=== PATIENT | female | born 1995 | race Hispanic/Latino ===

== ENCOUNTER 2018-06-17 06:09 | Emergency (ER) | payer OTHER ==
[2018-06-17 06:47] LABS: Bacteria,Urine 1+ /HPF (Negative); Bilirubin,Urine NEG (Negative); Blood,Urine NEG (Negative); Color,Urine Yellow (Yellow); Hyaline Casts,Urine 1 /LPF; Mucus,Urine 1+ /HPF
[2018-06-17 06:55] LABS: Benzodiazepines Screen,Urine PRESUMPTIVE NEGATIVE; Cocaine Screen,Urine PRESUMPTIVE NEGATIVE; Methadone Screen,Urine PRESUMPTIVE NEGATIVE; Opiate Screen,Urine PRESUMPTIVE NEGATIVE
[2018-06-17 07:02] LABS: HCG Qualitative,Urine Negative (Negative)
[2018-06-17 07:20] LABS: Basophils % (Auto) 0.4 % (0.0-1.8); Eosinophils % (Auto) 0.1 % (0.0-4.3); Hematocrit 41.6 % (30.3-42.9); Hemoglobin 14.4 gm/dl (10.1-14.3); Lymphocytes # (Auto) 0.5 K/mm3 (1.2-5.4); Lymphocytes % (Auto) 5.6 % (13.4-35.0); Mean Corpuscular HGB Conc 35 % (30-34); Mean Corpuscular Volume 92 fl (79-97); Monocytes # (Auto) 0.9 K/mm3 (0.0-0.8); Monocytes % (Auto) 10.2 % (0.0-7.3); Platelet Count 300 K/mm3 (140-440); Red Blood Count 4.52 M/mm3 (3.65-5.03); Red Cell Distribution Width 13.3 % (13.2-15.2)
[2018-06-17 07:32] LABS: BUN/Creatinine Ratio 30; Blood Urea Nitrogen 15 mg/dL (7-17); Calcium 9.3 mg/dL (8.4-10.2); Hemolysis Index 8
--- NOTE | 2018-06-17 07:33 | Emergency Department Report ---
ED Psych HPI - General Chief Complaint: Psych Stated Complaint: ALTERED MENTAL STATUS Time Seen by Provider: 06/17/18 07:24 Source: EMS Mode of arrival: Stretcher Limitations: No Limitations - History of Present Illness Initial Comments: Patient is a 22-year-old female that presents emergency room for acute agitation and bizarre behavior. Patient was brought in by EMS at the request of the police for mental evaluation. The patient was found on the [facility] and when approached by police patient became acutely agitated and started having biz arre behaviors. The patient was transported here by EMS. Patient was given Benadryl, Versed and Haldol to control her behaviors. Patient is sleeping at this time. Patient is lethargic but arousable. MD Complaint: altered mental status -: Sudden Associated Psychiatric Symptoms: none History of same: Yes Improves With: medication Treatments Prior to Arrival: placed on mental he, physical restraints, chemical restraints - Related Data Allergies Allergy/AdvReac Type Severity Reaction Status Date / Time Unable to Assess Allergy Unverified 06/17/18 06:34 ED Review of Systems ROS: Stated complaint: ALTERED MENTAL STATUS Other details as noted in HPI Comment: Unobtainable due to pts medical conditions ED Past Medical Hx - Past Medical History Previous Medical History?: No Additional medical history: unknown - Surgical History Additional Surgical History: unknown - Social History Smoking Status: Unknown if ever smoked Substance Use Type: None ED Physical Exam - General Limitations: Altered Mental Status General appearance: in no apparent distress, lethargic - Head Head exam: Present: atraumatic, normocephalic - Eye Eye exam: Present: normal appearance, PERRL Pupils: Present: normal accommodation - ENT ENT exam: Present: mucous membranes dry - Neck Neck exam: Present: normal inspection - Respiratory Respiratory exam: Present: normal lung sounds bilaterally. Absent: respiratory distress - Cardiovascular Cardiovascular Exam: Present: regular rate, normal rhythm. Absent: systolic murmur, diastolic murmur, rubs, gallop - GI/Abdominal GI/Abdominal exam: Present: soft, normal bowel sounds - Extremities Exam Extremities exam: Present: normal inspection, full ROM - Back Exam Back exam: Present: normal inspection - Neurological Exam Neurological exam: Present: alert, altered - Psychiatric Psychiatric exam: Present: flat affect - Skin Skin exam: Present: warm, dry, intact, normal color. Absent: rash ED Course Vital Signs 06/17/18 06/17/18 06/17/18 06:13 06:27 08:40 Temperature 97.7 F 97.8 F Pulse Rate 130 H 116 H 100 H Respiratory 17 18 16 Rate Blood Pressure 126/72 Blood Pressure 130/62 102/60 [Right] O2 Sat by Pulse 98 98 100 Oximetry 06/17/18 06/17/18 09:45 09:47 Temperature 97.8 F Pulse Rate 102 H Respiratory 14 Rate Blood Pressure 100/39 Blood Pressure [Right] O2 Sat by Pulse 100 Oximetry - Reevaluation(s) Reevaluation #1: Initial evaluation done. Patient placed on 1013 for aggressive behavior, violent behavior, bizarre behavior and behaviors consistent with acute psychosis. She is currently sleeping secondary to the medications given in route by EMS. 06/17/18 07:24 Patient is medically cleared will remain in the ER on a 1013 until accepted into appropriate psychiatric facility 06/17/18 14:47 Discussed all results with patient. Patient agrees with plan of care and will remain in the ER until she is evaluated by psychiatry. She is answering questio ns appropriately. Patient denies pain. Patient states she does not remember being agitated. 06/17/18 14:54 - ED Medical Decision Making - Lab Data Result diagrams: 06/17/18 07:10 06/17/18 07:10 - Medical Decision Making Patient is a 22-year-old female that presents to the emergency room for bizarre behaviors, violent behaviors and acute agitation. Behaviors consistent with acute psychosis. Patient was given Benadryl, Versed, Haldol in route by EMS to manage her violent behaviors. Patient is lethargic in the ER. Patient placed on a 1013 due to unable to care for herself. The patient had labs done and were unremarkable. - Differential Diagnosis acute psychosis. Violent behavior .acute agitation Critical care attestation.: If time is entered above; I have spent that time in minutes in the direct care of this critically ill patient, excluding procedure time. ED Disposition Clinical Impression: Violent behavior, Agitation, Acute psychosis Disposition: [id number] PSY HOSP/PSY UNIT Is pt being admited?: No Does the pt Need Aspirin: No Condition: Stable Time of Disposition: 14:55
[2018-06-17 07:36] LABS: Amphetamine Screen,Urine PRESUMPTIVE POSITIVE; Cannabinoid Screen,Urine PRESUMPTIVE POSITIVE
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
[2018-06-18] MEDS ORDERED: REMERON PO SCH (22:00)
[2018-06-19 07:52] VITALS: BP 110/57
--- NOTE | 2018-06-19 11:43 | Progress Note ---
Subjective - Reason for Consult Consult date: 06/19/18 Reason for consult: Psychiatry Follow-up - Chief Complaint Chief complaint: "I want to do better" 22-year-old white female who presented to the ER for bizarre behavior. Today the patient is calm during the assessment. She stated that her priority is stay away from "drugs." She stated that she want her life to get better. She stated that she is willing to try rehab services. She denies SI/HI's and AVH's. Mental Status Exam - Vital signs Last Vital Signs Temp 98.6 F 06/19/18 07:51 Pulse 75 06/19/18 07:51 Resp 18 06/19/18 07:51 BP 110/57 06/19/18 07:51 Pulse Ox 100 06/19/18 07:51 - Exam Narrative exam: MSE: Appearance: calm, cooperative Behavior: regular eye contact Speech: regular rate and tone Mood: "okay" Affect: congruent to mood Thought Process: linear Thought Content: denies SI/HI's and AVH's Motor Activity: sitting up in the bed Cognition: A/O x3 Insight: appropriate Judgment: appropriate Assessment and Plan Impression: Substance Induced Psychosis. Hx of Depression. PTSD. Today the patient is calm during the assessment. The patient's psychosis has resolved. Recommendation/Plan: Rescind 1013. Continue 15 mg PO HS for depression/PTSD. Discussed possible suicidality/medication induced demetria with the patient reference Remeron. Discussed the importance to take medication that's prescribed. Discussed the importance to abstain from recreational drugs with the patient. Dispo: The patient can follow up with [facility] for outpatient psy services. Will staff with Dr Law.
== END 2018-06-19 13:18 | disposition home or self-care (01) ==
LOC: ED 06:09 → EEVIPCON 06:09 → ED 06-19 13:18
DX: F23 Brief psychotic disorder (principal); R45.6 Violent behavior
CPT/HCPCS: 36415; 80048; 80307; 81001; 81025; 85025; 99284; G0480; 80320